=== PATIENT | male | born 1975 | race Caucasian/White ===

== ENCOUNTER 2019-03-06 09:30 | Emergency (ER) | payer MEDICAID ==
[~2019-03-06] VITALS: Ht 167.6 cm; Wt 68.5 kg
[2019-03-06 09:44] VITALS: BP 136/93; Ht 167.6 cm; Wt 68.5 kg
[2019-03-06 10:36] LABS: BASOPHIL % 0.3 % (0-2); PLATELET COUNT 194 x10^3mcL (130-400); RED CELL DISTRIBUTION WIDTH 13.4 % (11.5-14.5)
[2019-03-06 10:51] LABS: ALBUMIN 4.6 g/dL (3.4-5.0); CALCIUM 9.3 mg/dL (8.5-10.1); CARBON DIOXIDE 29.8 mmol/L (21-32); CHLORIDE SERUM 107 mmol/L (98-107); CREATININE SERUM 0.9 mg/dL (0.7-1.3); GFR1 > 60 mL/min; GLUCOSE SERUM 113 mg/dL (74-106); POTASSIUM SERUM 4.8 mmol/L (3.5-5.1); SODIUM SERUM 142 mmol/L (136-145); TOTAL PROTEIN, SERUM 8.4 g/dL (6.4-8.2)
[2019-03-06 10:52] LABS: ALKALINE PHOSPHATASE 131 U/L (46-116); ALT/SGPT 44 U/L (16-63); AST/SGOT 29 U/L (15-37); BILIRUBIN TOTAL 0.8 mg/dL (0.20-1.00)
== END 2019-03-06 11:58 | disposition home or self-care (01) ==
LOC: ED 09:30
DX: R10.84 Generalized abdominal pain (principal); R19.7 Diarrhea, unspecified
CPT/HCPCS: 36415